=== PATIENT | female | born 1980 | race Caucasian/White ===

== ENCOUNTER 2017-08-19 11:12 | Emergency (ER) | payer OTHER ==
[~2017-08-19] VITALS: Ht 165.1 cm; Wt 56.7 kg
[2017-08-19] MEDS ORDERED: HYDROMORPHONE 2MG/ML INJ IV ONE (11:45)
--- NOTE | 2017-08-19 12:17 | Diagnostic Imaging Report ---
PROCEDURE:X-RAY LEFT HAND, THREE OR MORE VIEWS COMPARISON:None. INDICATIONS:HAND SWELLING FROM FALL FINDINGS: Normal mineralization. No acute, displaced fracture or dislocation. No lytic or blastic lesion. Joint spaces are preserved. No significant soft tissue swelling. CONCLUSION: 1. No acute abnormalities. Carlos Alberto Hall M.D. Dictated by: Carlos Alberto Hall M.D. on 08/19/2017 at 12:26 Electronically approved by: Carlos Alberto Hall M.D. on 08/19/2017 at 12:26
--- NOTE | 2017-08-19 12:18 | Diagnostic Imaging Report ---
PROCEDURE:X-RAY PELVIS, AP VIEW COMPARISON:None. INDICATIONS:FALL FINDINGS: Normal mineralization. No acute, displaced fracture or dislocation. No lytic or blastic lesion. Bilateral hip and sacroiliac joints are unremarkable. Nonobstructive bowel gas pattern. Soft tissues are unremarkable. CONCLUSION: No acute abnormalities. Carlos Alberto Hall M.D. Dictated by: Carlos Alberto Hall M.D. on 08/19/2017 at 12:27 Electronically approved by: Carlos Alberto Hall M.D. on 08/19/2017 at 12:27
--- NOTE | 2017-08-19 12:18 | Diagnostic Imaging Report ---
Examination: CT BRAIN WITHOUT CONTRAST History:36-year-old female with a fall. Comparison studies:None Technique: Axial images were obtained from the skull base to the vertex. Coronal and sagittal images reconstructed from the axial data. Intravenous contrast: None Findings: Scalp: No abnormalities. Bones: No fractures, blastic or lytic lesions. Brain sulci: Appropriate for age. Ventricles: Normal in size and configuration. No hydrocephalus. Extra-axial space: No abnormalities. Parenchyma: No masses, hemorrhage, or acute or chronic cortical-based vascular insults. Sellar/suprasellar region: No abnormalities. Craniocervical junction: Patent foramen magnum. No Chiari one malformation. Incidental findings: Hyperinflation of the partially visualized paranasal sinuses. Impression: No intracranial abnormalities. Signed by: Dr. Caterina Stevenson M.D. on 08/19/2017 12:14 PM
--- NOTE | 2017-08-19 12:20 | Diagnostic Imaging Report ---
Examination: CT CERVICAL SPINE WITHOUT CONTRAST HISTORY:Fall. Neck pain COMPARISON:None. TECHNIQUE: Multidetector helical axial images were obtained without contrast from the foramen magnum to T1. Coronal and sagittal reformatted images were done. Bone and soft tissue windows were evaluated. FINDINGS: Alignment:Normal alignment with straightening of normal lordosis. Vertebrae: Normal height and density. No acute fracture, infection or neoplasm. Hemangiomata are demonstrated in the C4 and C6 vertebrae. Disc space heights: Normal height. Caliber of spinal canal: Developmentally normal. Posterior fossa and craniocervical junction: Foramen magnum patent. No Chiari 1 malformation. Soft tissues: No abnormality. Degenerative changes: No disc bulge/ herniation or foraminal or canal stenosis. Additional findings: None. IMPRESSION: No acute abnormalities. Signed by: Dr. Caterina Stevenson M.D. on 08/19/2017 12:16 PM
--- NOTE | 2017-08-19 12:21 | Diagnostic Imaging Report ---
Examination: CT Face without Contrast History:Fall. Facial injury. Comparison studies: None Technique: Axial images were obtained through the maxillofacial region. Coronal and sagittal reconstructions obtained from the axial data. Intravenous contrast: None Findings: Soft tissues: No abnormalities. Bones: No fractures or bony abnormalities. Orbits: Globes: Intact Extra or intraconal abnormalities: None. Paranasal sinuses: Hyper aerated. Mild inflammatory mucosal thickening along the left greater than right maxillary sinuses (alveolar recesses. Nasal cavity: Patent. No septal deviation. IMPRESSION: No acute facial abnormality. Signed by: Dr. Caterina Stevenson M.D. on 08/19/2017 12:18 PM
[2017-08-19 13:05] VITALS: BP 89/66
== END 2017-08-19 13:24 | disposition home or self-care (01) ==
LOC: ER 11:12
DX: S01.511A Laceration without foreign body of lip, initial encounter (principal); S01.81XA Laceration without foreign body of other part of head, initial encounter; S60.221A Contusion of right hand, initial encounter; W01.0XXA Fall on same level from slipping, tripping and stumbling without subsequent striking against object, initial encounter
CPT/HCPCS: 70450; 70486; 72125; 72170; 99283